=== PATIENT | female | born 1955 | race Caucasian/White ===

== ENCOUNTER 2021-02-26 17:25 | Inpatient (IN) | payer MEDICARE, OTHER ==
[~2021-02-26] VITALS: Ht 160 cm; Wt 65.8 kg
[2021-02-26 19:19] LABS: HEMOGLOBIN 12.3 gm/dl (12.3-15.3); RED BLOOD COUNT 4.11 M/UL (4.00-5.10); WHITE BLOOD COUNT 6.8 K/UL (4.5-11.0)
[2021-02-26 19:46] LABS: BUN/CREATININE RATIO 22 (0-10)
[2021-02-27] MEDS ORDERED: PREDNISONE5 MG PO (04:36)
[2021-02-27] MEDS ORDERED: LISINOPRIL10 MG PO (04:37)
[2021-02-27] MEDS ORDERED: XELJANZ10 MG PO (04:37)
[2021-02-27] MEDS ORDERED: OXYCODONE HCL30 MG PO (04:38)
[2021-02-27 04:40] LABS: BUN/CREATININE RATIO 22 (0-10)
[2021-03-02 05:58] LABS: RED BLOOD COUNT 3.67 M/UL (4.00-5.10); WHITE BLOOD COUNT 5.4 K/UL (4.5-11.0)
[2021-03-02 06:22] LABS: BUN/CREATININE RATIO 18 (0-10)
[2021-03-03 03:00] LABS: HEMOGLOBIN 11.6 gm/dl (12.3-15.3); RED BLOOD COUNT 3.95 M/UL (4.00-5.10); WHITE BLOOD COUNT 6.2 K/UL (4.5-11.0)
[2021-03-03 04:04] LABS: BUN/CREATININE RATIO 20 (0-10)
[2021-03-04 04:34] LABS: HEMOGLOBIN 10.9 gm/dl (12.3-15.3); RED BLOOD COUNT 3.66 M/UL (4.00-5.10)
[2021-03-04 04:51] LABS: BUN/CREATININE RATIO 20 (0-10)
[2021-03-05 04:40] LABS: HEMOGLOBIN 10.4 gm/dl (12.3-15.3); RED BLOOD COUNT 3.44 M/UL (4.00-5.10); WHITE BLOOD COUNT 6.9 K/UL (4.5-11.0)
[2021-03-05 05:12] LABS: BUN/CREATININE RATIO 18 (0-10)
[2021-03-06] MEDS ORDERED: STIMULANT LAXA1 EACH PO (12:11)
[2021-03-06] MEDS ORDERED: CYCLOBENZAPRINE10 MG PO (12:11)
[2021-03-06] MEDS ORDERED: MI-ACID80 MG PO (12:11)
[2021-03-07 03:03] LABS: RED BLOOD COUNT 3.68 M/UL (4.00-5.10); WHITE BLOOD COUNT 6.5 K/UL (4.5-11.0)
[2021-03-07 03:27] LABS: BUN/CREATININE RATIO 16 (0-10)
[2021-03-08 04:15] LABS: HEMOGLOBIN 11.5 gm/dl (12.3-15.3); RED BLOOD COUNT 3.86 M/UL (4.00-5.10); WHITE BLOOD COUNT 6.6 K/UL (4.5-11.0)
[2021-03-08 04:40] LABS: BUN/CREATININE RATIO 13 (0-10)
[2021-03-08] MEDS ORDERED: PROTONIX 40 MG40 M1 PO (16:31)
== END 2021-03-08 18:20 | disposition home or self-care (01) | DRG 543 ==
LOC: ER1 17:25 → MED SURG 4 22:42 → PROG CARE 22:42 → CDU 22:42 → PROG CARE 02-27 05:00 → MED SURG 4 02-27 22:00
PROVIDERS: Internal Medicine; Physician Assistant; ADMIT Internal Medicine
DX: M48.54XA Collapsed vertebra, not elsewhere classified, thoracic region, initial encounter for fracture (principal); F11.20 Opioid dependence, uncomplicated; M06.88 Other specified rheumatoid arthritis, vertebrae; M62.838 Other muscle spasm; Z20.822 Contact with and (suspected) exposure to COVID-19; K59.00 Constipation, unspecified; R14.0 Abdominal distension (gaseous); K21.9 Gastro-esophageal reflux disease without esophagitis; M48.04 Spinal stenosis, thoracic region; I10 Essential (primary) hypertension; G89.29 Other chronic pain; Z96.653 Presence of artificial knee joint, bilateral; Z96.649 Presence of unspecified artificial hip joint; Z96.639 Presence of unspecified artificial wrist joint; D64.9 Anemia, unspecified; K59.09 Other constipation; R53.81 Other malaise; Z79.52 Long term (current) use of systemic steroids; Z88.8 Allergy status to other drugs, medicaments and biological substances; Z90.710 Acquired absence of both cervix and uterus
CPT/HCPCS: 36415; 72128; 74181; 76705; 80048; 80053; 81001; 82550; 82553; 83605; 83690; 84484; 85025; 85027; 87040; 87086; 93005; 96374; 96375; 96376; 97161; 99285; J0295; J1650; J2060; J2270; J2405; J7030; Q9967; U0002

== ENCOUNTER → 2021-03-29 | Outpatient (CLI) | payer MEDICARE, OTHER ==
[~2021-03-29] MED LIST: CEPHALEXIN500 MG PO; CYCLOBENZAPRINE10 MG PO; LISINOPRIL10 MG PO; MI-ACID80 MG PO; OXYCODONE HCL30 MG PO; PREDNISONE5 MG PO; PROTONIX 40 MG40 M1 PO; STIMULANT LAXA1 EACH PO; XELJANZ10 MG PO; ZOFRAN ODT 4 MG4 MG PO
== END ==
LOC: EXRD 15:00
DX: M81.0 Age-related osteoporosis without current pathological fracture (principal)
CPT/HCPCS: 77080

== ENCOUNTER 2021-04-03 22:26 | Emergency (ER) | payer MEDICARE, OTHER ==
[~2021-04-03 22:26] MED LIST changes: -CEPHALEXIN500 MG PO; -ZOFRAN ODT 4 MG4 MG PO
[2021-04-04 03:12] LABS: HEMOGLOBIN 13.8 gm/dl (12.3-15.3); RED BLOOD COUNT 4.5 M/UL (4.00-5.10); WHITE BLOOD COUNT 6.9 K/UL (4.5-11.0)
[2021-04-04 03:29] LABS: BUN/CREATININE RATIO 22 (0-10)
[2021-04-04] MEDS ORDERED: ZOFRAN ODT 4 MG4 MG PO (03:34)
[2021-04-04] MEDS ORDERED: CEPHALEXIN500 MG PO (03:34)
== END 2021-04-04 05:45 | disposition home or self-care (01) ==
LOC: ER1 22:26
PROVIDERS: Physician Assistant
DX: N39.0 Urinary tract infection, site not specified (principal)
CPT/HCPCS: 80053; 81001; 82550; 82553; 83690; 83874; 84484; 85025; 87077; 87086; 87186; 93005; 96374; 96375; 99284; J0696; J1885; J2405; Q9967